=== PATIENT | female | born 1985 | race Hispanic/Latino ===

== ENCOUNTER → 2016-04-08 | Outpatient (CLI) | payer OTHER ==
[~2016-04-08] MED LIST: ACET50TA PO; IBUP-1114 PO; PRENTAB9 PO
== END | disposition home or self-care (01) ==
LOC: M LAB 07:56
PROVIDERS: ATTEND Obstetrics & Gynecology
DX: Z86.32 Personal history of gestational diabetes (principal)

== ENCOUNTER → 2018-04-28 | Outpatient (REF) | payer OTHER ==
[~2018-04-28] MED LIST changes: -ACET50TA PO; +MAPA500T2 PO
[2018-04-28 19:43] LABS: HCG, SERUM QUALITATIVE POSITIVE (NEGATIVE)
== END ==
LOC: M LABDRWAD 19:16
PROVIDERS: ATTEND Physician Assistant
DX: R11.0 Nausea (principal)

== ENCOUNTER → 2018-06-23 | Outpatient (CLI) | payer MEDICAID ==
[2018-06-23 13:43] LABS: BASO % 0.1 % (0.0-1.0); EOS % 0.4 % (0.0-3.0); HEMATOCRIT 38.7 % (36.0-47.0); HEMOGLOBIN 13.6 g/dl (12.0-15.5); LYMPH # 1.6 10^3/uL (1.5-4.5); LYMPH % 22.5 % (24.0-44.0); MEAN CORPUSCULAR HEMOGLOBIN 32.2 pg (27.0-33.0); MEAN CORPUSCULAR HGB CONC 35.1 g/dl (32.0-36.5); MEAN CORPUSCULAR VOLUME 91.5 fl (80.0-96.0); MONO # 0.2 10^3/uL (0.0-0.8); MONO % 2.6 % (0.0-5.0); NEUTROPHILS # 5.4 10^3/uL (1.8-7.7); NEUTROPHILS % 74.1 % (36.0-66.0); PLATELET COUNT, AUTOMATED 280 10^3/uL (150-450); RED BLOOD COUNT 4.23 10^6/uL (4.00-5.40); WHITE BLOOD COUNT 7.3 10^3/uL (4.0-10.0)
[2018-06-23 15:57] LABS: CHLAMYDIA DNA AMPLIFICATION NEGATIVE (NEGATIVE); GC DNA AMPLIFICATION NEGATIVE (NEGATIVE)
[2018-06-24 08:27] LABS: HEPATITIS C VIRUS ABY INDEX 0.1 INDEX (<0.8); HIV 1&2 SCREEN CENTAUR NEGATIVE (NEGATIVE); RUBELLA IgG QUALITATIVE IMMUNE (IMMUNE)
== END ==
LOC: M SMT 08:22
PROVIDERS: ATTEND Obstetrics & Gynecology
DX: Z34.81 Encounter for supervision of other normal pregnancy, first trimester (principal); Z3A.00 Weeks of gestation of pregnancy not specified

== ENCOUNTER → 2018-06-28 | Outpatient (CLI) | payer MEDICAID | LOC: M LAB 07:18 | PROVIDERS: ATTEND Obstetrics & Gynecology | DX: Z34.81 Encounter for supervision of other normal pregnancy, first trimester (principal) ==

== ENCOUNTER → 2018-07-25 | Outpatient (CLI) | payer OTHER ==
--- NOTE | 2018-07-26 03:50 | REP ---
Clinical: Anatomical evaluation. Comparison: None . Findings: Examination demonstrates a single live intrauterine in breech presentation. motion is identified by technologist. Placenta is noted anterior and grade grade 1 without evidence for placenta previa or abruption. Amniotic fluid volume is normal. Cervix measures 3.9 cm in length and appears closed. No evidence for nuchal cord. Anterior subserosal fibroids measure 1.3 cm and 2.3 cm maximal diameter. Gestational age by LMP 19 weeks 1 day with BRENNAN 12/18/1989 . Gestational age by current measurements 18 weeks 6 days with BRENNAN 12/20/2018 . FHR equals 138 beats per minute. BPD 4.3 cm 19 weeks 0 days HC 16.0 cm 18 weeks 6 days AC 14.1 cm 19 weeks 3-day FL 2.8 cm 18 weeks 4 days HL 2.7 cm 18 weeks 4 days HC/AC ratio 1.14 Estimated weight 271 grams ( 45th percentile). Anatomical assessment demonstrates normal structures including cranium, choroid plexus, cavum, cerebellum/posterior fossa, diaphragm, stomach, cord insertion/three-vessel cord, bladder, and extremities. Limited evaluation of the facial features, heart/ventricular outflow tracts, kidneys and spine. Impression: 1. Single live intrauterine in breech presentation demonstrating appropriate interval growth. 2. Maternal fibroids as measured above. 3. Anatomical limitations may warrant reevaluation and follow-up. Electronically Signed by Scott Woo MD 07/26/2018 03:41 A
== END ==
LOC: M RAD 09:18
PROVIDERS: ATTEND Advanced Practice Midwife
DX: Z34.82 Encounter for supervision of other normal pregnancy, second trimester (principal); Z3A.18 18 weeks gestation of pregnancy

== ENCOUNTER → 2018-08-15 | Outpatient (CLI) | payer OTHER ==
--- NOTE | 2018-08-16 05:24 | REP ---
Clinical: Anatomical evaluation. Comparison: 07/15/2018 . Findings: Examination demonstrates a single live intrauterine in cephalic presentation. motion is identified by technologist. Placenta is noted anterior and grade one without evidence for placenta previa or abruption. Amniotic fluid volume is normal. Cervix measures 3.9 cm in length and appears closed. No evidence for nuchal cord. Gestational age by LMP 22 weeks 1 day with BRENNAN 12/18/1989 . Gestational age by current measurements 22 weeks 4 day with BRENNAN 12/15/2018 FHR equals 147 beats per minute. Estimated weight 519 grams ( 62 percentile). Anatomical assessment demonstrates normal structures including cranium, choroid plexus, cavum, cerebellum/posterior fossa, facial features, lungs, four-chamber heart/right ventricular outflow tract, diaphragm, stomach, cord insertion/three-vessel cord, kidneys/bladder, spine, and extremities. Echogenic focus within the left cardiac ventricle likely chordae tendineae. Limited evaluation of the left cardiac ventricular outflow tract. Bilateral renal pelviectasis within normal range. Impression: 1. Single live intrauterine in cephalic presentation demonstrating appropriate interval growth. 2. Anatomical limitations as described above. Electronically Signed by Scott Woo MD 08/16/2018 05:15 A
== END ==
LOC: M RAD 12:58
PROVIDERS: ATTEND Advanced Practice Midwife
DX: O99.89 Other specified diseases and conditions complicating pregnancy, childbirth and the puerperium (principal); Z3A.22 22 weeks gestation of pregnancy; Z36.2 Encounter for other antenatal screening follow-up

== ENCOUNTER → 2018-08-30 | Outpatient (CLI) | payer OTHER ==
[2018-08-30 13:19] LABS: HEMOGLOBIN 13.1 g/dl (12.0-15.5); MEAN CORPUSCULAR HGB CONC 34.5 g/dl (32.0-36.5); MEAN CORPUSCULAR VOLUME 92.9 fl (80.0-96.0); PLATELET COUNT, AUTOMATED 247 10^3/uL (150-450); RED BLOOD COUNT 4.09 10^6/uL (4.00-5.40); WHITE BLOOD COUNT 7.4 10^3/uL (4.0-10.0)
== END ==
LOC: M SMT 11:13
PROVIDERS: ATTEND Advanced Practice Midwife
DX: O24.410 Gestational diabetes mellitus in pregnancy, diet controlled (principal); Z3A.00 Weeks of gestation of pregnancy not specified

== ENCOUNTER → 2018-09-08 | Outpatient (CLI) | payer OTHER ==
--- NOTE | 2018-09-08 16:20 | REP ---
Clinical: Anatomical evaluation. Comparison: 08/15/2018 . Findings: Examination demonstrates a single live intrauterine in cephalic presentation. motion is identified by technologist. Placenta is noted anterior and grade one without evidence for placenta previa or abruption. Large placental venous briceno. Amniotic fluid volume is normal. Cervix measures 4.7 cm in length and appears closed. No evidence for nuchal cord. Uterus again demonstrates two fibroids measuring 1.4 x 1.4 x 0.6 cm and 2.0 x 1.2 x 1.8 cm. Gestational age by LMP 25 weeks 4 day with BRENNAN 12/18/2018 . Gestational age by current measurements 25 weeks 3 day with BRENNAN 12/19/2018 . FHR equals 143 beats per minute. Estimated weight 843 grams ( 46th percentile). Anatomical assessment demonstrates normal structures including cranium, choroid plexus, cavum, cerebellum/posterior fossa, facial features, lungs, four-chamber heart/ventricular outflow tracts, diaphragm, stomach, cord insertion/three-vessel cord, and kidneys/bladder. Echogenic focus within the left cardiac ventricle likely represents prominent chordae tendineae. In conjunction with prior examination anatomical assessment is otherwise complete and normal. Impression: 1. Single live intrauterine in cephalic presentation demonstrating appropriate interval growth. 2. Echogenic focus within the left cardiac ventricle likely represents prominent chordae tendineae. In conjunction with prior examination anatomical assessment is otherwise complete and normal. 3. Large venous briceno and to fibroids again identified. Electronically Signed by Scott Woo MD 09/08/2018 04:11 P
== END ==
LOC: M RAD 15:00
PROVIDERS: ATTEND Advanced Practice Midwife
DX: O24.410 Gestational diabetes mellitus in pregnancy, diet controlled (principal); Z3A.25 25 weeks gestation of pregnancy

== ENCOUNTER → 2018-11-23 | Outpatient (CLI) | payer OTHER ==
[2018-11-23 13:41] LABS: ALBUMIN 2.8 GM/DL (3.2-5.2); ALT/SGPT 16 U/L (12-78); BILIRUBIN,DIRECT < 0.1 MG/DL (0.0-0.2); BILIRUBIN,TOTAL 0.2 MG/DL (0.2-1.0); TOTAL PROTEIN 6.2 GM/DL (6.4-8.2)
[2018-11-23 14:14] LABS: HIV 1&2 SCREEN CENTAUR NEGATIVE (NEGATIVE)
== END ==
LOC: M SMT 10:07
PROVIDERS: ATTEND Advanced Practice Midwife
DX: Z34.03 Encounter for supervision of normal first pregnancy, third trimester (principal); Z36.85 Encounter for antenatal screening for Streptococcus B; L20.9 Atopic dermatitis, unspecified

== ENCOUNTER 2018-12-10 00:14 | Inpatient (IN) | payer OTHER ==
[2018-12-10] VITALS (10 sets, daily range): BP systolic 118–139; BP diastolic 52–81
[~2018-12-10] VITALS: Ht 132.1 cm; Wt 68.5 kg
[2018-12-10] MEDS ORDERED: LR 1,000 ML IV SCH (00:50)
[2018-12-10] MEDS ORDERED: LACTATED RINGER'S 1000 ML IV STA (00:50)
[2018-12-10] MEDS ORDERED: PENICILLIN G POTASSIUM IV 5 MU in D5W MINI-BAG PLUS 100 ML IV STA (00:50)
[2018-12-10] MEDS ORDERED: PENICILLIN G POTASSIUM 5 MU VIAL As Ordered ONE (00:52)
--- NOTE | 2018-12-10 01:02 | HPEPDOC ---
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 Sex of Infant: Male (6#8) Complications: Yes (GDM) ACOUSTICAL CARPENTER History: No pertinent history Past Medical History Surgical History: Denies/None Family History Significant Family History: Diabetes, Hypertension Social History Marital Status: Single Family situation: Spouse/partner home Psychosocial History: No pertinent psych hx * Smoker: non-smoker Alcohol: Denies Drugs: denies Abuse Violence Screening Have you been hit/kicked/slapp: No Imunizations Tdap status: current Influenza Status: current Allergies Coded Allergies: latex (Verified Allergy, Unknown, RASH, 12/10/18) Medications Scheduled No.137/Iron/Folic Acd ( Vitamin Tablet) 1 Tab Tab, 1 TAB PO DAILY Physical Examination Physical Examination GENERAL: Alert and oriented times three. BREAST: . ABDOMEN: Gravid and non-tender to touch. FETUS: Is vertex (VTX) by sterile vaginal examination (SVE), fetus is vertex (VTX) by Garret. HEART RATE: Regular rate and rhythm. LUNGS: Clear to auscultation (CTA). EXTREMITIES: No edema. No clonus. Deep tendon reflexes (DTRs) + 2. Laboratory Data 24H LABS Laboratory Tests 2 12/10/18 00:22: Serology Scanned Report Hepatitis B Testing Pertinent Laboratoy Data Blood Type: O+ RBC Antibody Screen: Negative HIV: Negative Hepatitis B: Negative Hepatitis C: Negative Rapid Plasma Reagin: Nonreactive Rubella: Immune Chlamydia/Gonorrhea: Negative Group B Streptococcus: Positive Quad Screen Test: Declined Glucose Tolerance Test: 185 Anatomy Ultrasound Ultrasound Date: July 25, 2018 Placenta Location: Anterior Normal Anatomy: Yes Placenta Previa: No Estimated Weight (grams): 271 Steroid Therapy Steroid Therapy: No Vaginal Examination Dilation: 8 cm Effacement: 100% Station: 0 Cervical Consistency: Soft Cervical Position: Anterior Presentation: Cephalic presentation Assessment Heart Rate (FHR): 130 Variability: Moderate Accelerations: Positive Decelerations: Early Tocometer Contractions: Yes Frequency: regular, every 2-5 min. Strength: palpated as strong Assessment/Plan Assessment Mai is a 33-year-old (G)2 para (P)1-0-0-1 at 38+6 weeks by 12-week ultrasound. Presents to Labor and Delivery (L&D) with reports of UC through the night and LOF @ 2330, clear. Denies bleeding. Fetus is active. Plan Admit and orient. Information Delivery Analyst and consent. Diet: clear. Group B Streptococcus (GBS) positive. Labs and intravenous (IV) per unit protocol. Counseled on Pitocin and induction of labor (IOL). Lactated Ringers (LR): Bolus 500 mL, then at 125 mL/hr. Anticipate normal spontaneous delivery (). C-S as appropriate. Delores Sullivan CNM Dec 10, 2018 01:02
[2018-12-10 01:05] LABS: HEMOGLOBIN 11.3 g/dl (12.0-15.5); MEAN CORPUSCULAR HGB CONC 33.2 g/dl (32.0-36.5); MEAN CORPUSCULAR VOLUME 87.4 fl (80.0-96.0); PLATELET COUNT, AUTOMATED 215 10^3/uL (150-450); RED BLOOD COUNT 3.89 10^6/uL (4.00-5.40)
[2018-12-10] MEDS ORDERED: OXYTOCIN 30 UNITS IN 0.9% NaCl 500ML IV BAG (J2590) As Ordered ONE (01:07)
[2018-12-10 02:08] LABS: CORD GAS ABE V -7.2; CORD GAS HCO3 V 17.9 MEQ/L; CORD GAS O2 SAT V 94.5 %; CORD GAS PCO2 V 35.6 mmHg; CORD GAS PH V 7.32 UNITS; CORD GAS PO2 V 55.5 mmHg; CORD GAS SBC V 18.7 MEQ/L
[2018-12-10] MEDS ORDERED: OXYTOCIN DRIP 30 UNITS in IV 1 EA IV SCH (02:16)
--- NOTE | 2018-12-10 02:25 | DNPDOC ---
[facility] Delivery Note Delivery Note DATE OF DELIVERY: December 10, 2018 PREDELIVERY DIAGNOSIS: 38+6/7 weeks' gestation and labor. POST DELIVERY DIAGNOSIS: Delivered. PROCEDURE: Spontaneous vaginal delivery. PROVIDER: Delores Sullivan CNM ANESTHESIA: None. ESTIMATED BLOOD LOSS: 400 mL. FINDINGS: 6 pound 6 ounce, 2890gm male , Score 8/9, nuchal cord times 1, compound presentation right posterior arm. DELIVERY SUMMARY: Patient is a 33-year-old 2 now para 2-0-0-2 who was admitted to labor and delivery for active labor and spontaneous rupture of membranes. She coped with her labor physiologically. FD 0112. Viable male delivered JAK through nuchal cord with compound right posterior arm. Spontaneous respirations, transitioned on maternal abdomen. Cord doubly clamped and cut by patient after pulsations ceased. Venous cord gas 7.320 with BE -7.2. Apgars 8/9. Placenta morgan, intact with 3v cord @ 0147. Fundus remained boggy with brisk bleeding despite IV pitocin bolus and massage. Misoprostol 1000mcg MI given with excellent control of bleeding. EBL 400ml. Cervix, vagina and perineum intact. Sponge, sharp and instrument count correct. . Delores Sullivan CNM Dec 10, 2018 02:25
[2018-12-10] MEDS: METHYLERGONOVINE MALEATE 0.2 MG TAB PO SCH ×4 (02:29→21:02)
[2018-12-10] MEDS ORDERED: ACETAMINOPHEN 500 MG TAB PO PRN (02:30)
[2018-12-10] MEDS ORDERED: DOCUSATE SODIUM 100 MG CAP PO PRN (02:30)
[2018-12-10] MEDS ORDERED: IBUPROFEN 800 MG TAB PO PRN (02:30)
[2018-12-10] MEDS ORDERED: ANUSOL HC CREAM 30GM TOP PRN (02:30)
[2018-12-10] MEDS ORDERED: IBUPROFEN 600 MG TAB PO PRN (02:30)
[2018-12-10] MEDS ORDERED: MOM 30ML SUSPENSION UDC PO PRN (02:30)
[2018-12-10] MEDS ORDERED: RHOGAM 300 MCG (1500 IU) INJ (J2790) IM SCH (02:30)
[2018-12-10] MEDS ORDERED: miSOPROStol 200 MCG TAB (S0191) PR ONE (02:30)
[2018-12-10] MEDS ORDERED: ACETAMINOPHEN TAB 650MG DOSE (2X325MG) PO PRN (02:30)
[2018-12-10] MEDS ORDERED: DIBUCAINE 1% OINTMENT 30GM TOP PRN (02:30)
[2018-12-10] MEDS ORDERED: MEASLES,MUMPS,RUBELLA VACCINE INJ (MMR-II) (90707) SC SCH (02:30)
[2018-12-10] MEDS ORDERED: PENICILLIN G POTASSIUM IV 2.5 MU in IV 1 EA IV SCH (05:00)
[2018-12-10] MEDS: PRENATAL VITAMINS CHEWABLE TABLET PO SCH (08:59)
[2018-12-11] MEDS: METHYLERGONOVINE MALEATE 0.2 MG TAB PO SCH (02:05)
[2018-12-11 06:00] VITALS: BP 99/62
[2018-12-11] MEDS: PRENATAL VITAMINS CHEWABLE TABLET PO SCH (08:29)
[2018-12-11 17:46] VITALS: BP 103/52
[2018-12-12 06:00] VITALS: BP 109/54
[2018-12-12] MEDS: PRENATAL VITAMINS CHEWABLE TABLET PO SCH (08:45)
[2018-12-12] MEDS ORDERED: IBUP80TA PO (09:33)
== END 2018-12-12 13:00 | disposition home or self-care (01) | DRG 560 ==
LOC: M LDI 00:14 → M OBS 04:33
PROVIDERS: ADMIT Advanced Practice Midwife; ATTEND Advanced Practice Midwife
PROC: 10E0XZZ Delivery of Products of Conception, External Approach (ICD-10-PCS; principal; 2018-12-10)
DX: O24.420 Gestational diabetes mellitus in childbirth, diet controlled (principal); O99.824 Streptococcus B carrier state complicating childbirth; Z3A.38 38 weeks gestation of pregnancy; O69.81X0 Labor and delivery complicated by cord around neck, without compression, not applicable or unspecified; O32.6XX0 Maternal care for compound presentation, not applicable or unspecified; Z37.0 Single live birth

== ENCOUNTER → 2019-01-31 | Outpatient (CLI) | payer OTHER ==
[~2019-01-31] MED LIST changes: +IBUP80TA PO
== END ==
LOC: M LAB 08:21
PROVIDERS: ATTEND Advanced Practice Midwife
DX: O24.410 Gestational diabetes mellitus in pregnancy, diet controlled (principal)

== ENCOUNTER → 2019-03-21 | Outpatient (REF) | payer OTHER, SELFPAY | LOC: M SFHCWAGY 17:53 | PROVIDERS: ATTEND Advanced Practice Midwife | DX: Z12.4 Encounter for screening for malignant neoplasm of cervix (principal) ==

== ENCOUNTER → 2020-04-12 | Outpatient (REF) | payer OTHER | LOC: M PLALAB 14:39 | PROVIDERS: ATTEND Obstetrics & Gynecology | DX: Z86.32 Personal history of gestational diabetes (principal) ==

== ENCOUNTER → 2020-05-24 | Outpatient (REF) | payer OTHER ==
[2020-05-24 15:55] LABS: HEMATOCRIT 37.3 % (36.0-47.0); HEMOGLOBIN 12.7 g/dl (12.0-15.5); MEAN CORPUSCULAR HEMOGLOBIN 32.5 pg (27.0-33.0); MEAN CORPUSCULAR VOLUME 95.4 fl (80.0-96.0); PLATELET COUNT, AUTOMATED 229 10^3/uL (150-450); RED BLOOD COUNT 3.91 10^6/uL (4.00-5.40); WHITE BLOOD COUNT 7.3 10^3/uL (4.0-10.0)
[2020-05-24 16:04] LABS: HEMOGLOBIN A1c 4.8 %
[2020-05-24 16:10] LABS: GLUCOSE CHALLENGE TEST 1 HOUR 192 MG/DL (LESS THAN 140)
[2020-05-24 17:14] LABS: HEPATITIS C VIRUS ABY INDEX < 0.0 INDEX (<0.8)
[2020-05-24 17:15] LABS: HIV 1&2 SCREEN CENTAUR NEGATIVE (NEGATIVE)
== END ==
LOC: M PLALAB 11:50
PROVIDERS: ATTEND Obstetrics & Gynecology
DX: Z86.32 Personal history of gestational diabetes (principal)

== ENCOUNTER → 2020-05-25 | Outpatient (REF) | payer OTHER | LOC: M PLALAB 11:17 | PROVIDERS: ATTEND Obstetrics & Gynecology | DX: O99.810 Abnormal glucose complicating pregnancy (principal); Z3A.00 Weeks of gestation of pregnancy not specified; Z53.9 Procedure and treatment not carried out, unspecified reason ==

== ENCOUNTER → 2020-06-12 | Outpatient (CLI) | payer OTHER ==
--- NOTE | 2020-06-13 06:26 | REP ---
INDICATION: ANATOMY COMPARISON: None. TECHNIQUE: Transabdominal obstetrical ultrasound with color Doppler evaluation. FINDINGS: Examination demonstrates a single live intrauterine in cephalic presentation. motion is identified by technologist. Placenta is noted posterior and grade 0 without evidence for placenta previa or abruption. Amniotic fluid volume is normal. Cervix measures 3.4 cm in length and appears closed. A 1.1 cm anterior intramural fibroid is suggested in the uterus.. Gestational age by LMP 22 weeks 5 days with BRENNAN 10/11/2020. Gestational age by current measurements 22 weeks 4 days with BRENNAN 10/12/2020 *Selected gestational age: 23 weeks 3 days. FHR equals 146 beats per minute. BPD: 5.5 cm at 22 weeks 6 days HC: 19.8 cm at 22 weeks 0 days AC: 18.4 cm at 23 weeks 1 day FL: 3.8 cm at 22 weeks 1 day HL: 3.6 cm at 22 weeks 5 days HC/AC: 1.08 Estimated weight 523 grams (14thpercentile based on selected gestational age). Anatomical assessment demonstrates normal structures including cranium, choroid plexus, cavum, cerebellum/posterior fossa, facial features, lungs, four-chamber heart/ventricular outflow tracts, diaphragm, stomach, cord insertion/three-vessel cord, kidneys/bladder, spine, and extremities. IMPRESSION: 1. Single live intrauterine in cephalic presentation demonstrating relatively normal estimated weight/growth. 2. Anatomical assessment is complete and normal. 3. Small anterior intramural fibroid. <Electronically signed by Scott Woo > 06/13/20 0622
== END ==
LOC: M WHC 10:30
PROVIDERS: ATTEND Advanced Practice Midwife
DX: Z34.92 Encounter for supervision of normal pregnancy, unspecified, second trimester (principal); Z3A.22 22 weeks gestation of pregnancy

== ENCOUNTER → 2020-07-10 | Outpatient (REF) | payer OTHER ==
[2020-07-10 13:37] LABS: HEMATOCRIT 36.2 % (36.0-47.0); HEMOGLOBIN 12.3 g/dl (12.0-15.5); MEAN CORPUSCULAR VOLUME 94.3 fl (80.0-96.0); PLATELET COUNT, AUTOMATED 225 10^3/uL (150-450); RED BLOOD COUNT 3.84 10^6/uL (4.00-5.40); WHITE BLOOD COUNT 6.7 10^3/uL (4.0-10.0)
== END ==
LOC: M PLALAB 09:38
PROVIDERS: ATTEND Advanced Practice Midwife
DX: Z36.89 Encounter for other specified antenatal screening (principal); Z3A.23 23 weeks gestation of pregnancy

== ENCOUNTER → 2020-08-15 | Outpatient (CLI) | payer OTHER ==
--- NOTE | 2020-08-15 10:11 | REP ---
INDICATION: UTERINE SIZE DATE DISCREPANCY,GROWTH COMPARISON: 06/12/2020 TECHNIQUE: Transabdominal obstetrical ultrasound with color Doppler evaluation. FINDINGS: Examination demonstrates a single live intrauterine in transverse (head to maternal left) presentation. motion is identified by technologist. Placenta is noted fundal and grade 1 without evidence for placenta previa or abruption. Few small placental venous lakes are suggested. Amniotic fluid volume is normal. Cervix measures 3.7 cm in length and appears closed. KARAN: 20.8 cm. Selected gestational age by 1st U/S 32 weeks 4 days with BRENNAN 10/06/2020. Gestational age by current measurements 33 weeks 0 days with BRENNAN 10/03/2020. FHR equals 140 beats per minute. BPD: 8.2 cm at 33 weeks 0 days HC: 29.8 cm at 33 weeks 0 days AC: 29.2 cm at 33 weeks 2 days FL: 6.2 cm at 32 weeks 0 days HL: 5.8 cm at 33 weeks 3 days HC/AC: 1.02 Estimated weight 2059 grams (48thpercentile). Umbilical artery 1 SD ratio: 2.85 (1.81-3.81) Umbilical artery 2 SD ratio: 2.64 (1.81-3.81) IMPRESSION: Single live intrauterine in transverse lie demonstrating appropriate estimated weight and growth. <Electronically signed by Scott Woo > 08/15/20 1007
== END ==
LOC: M WHC 09:24
PROVIDERS: ATTEND Advanced Practice Midwife
DX: O26.849 Uterine size-date discrepancy, unspecified trimester (principal)

== ENCOUNTER → 2020-09-04 | Outpatient (REF) | payer OTHER | LOC: M SFHCWAGY 13:03 | PROVIDERS: ATTEND Advanced Practice Midwife | DX: O24.319 Unspecified pre-existing diabetes mellitus in pregnancy, unspecified trimester (principal) ==

== ENCOUNTER → 2020-09-11 | Outpatient (CLI) | payer OTHER ==
--- NOTE | 2020-09-11 08:56 | REP ---
INDICATION: PREGESTATIONAL DIABETES,GROWTH. COMPARISON: None. TECHNIQUE: Transabdominal scanning FINDINGS: Multiple ultrasonographic images of the gravid uterus shows a single living intrauterine gestation in the cephalic presentation. Doppler interrogation of the heart shows a heart rate of 143 beats per minute. The placenta is posterior and not low-lying. Secondary to the low position of the head an accurate cervical length measurement could not be obtained. The subjective amniotic fluid volume is within normal limits. The calculated amniotic fluid index is 15.31 expected range 7.6-24.7. Doppler interrogation of the umbilical artery shows an AB ratio of 2.02. This is within the normal range. BPD: 8.7 cm 35 weeks 1 day HC: 30.6 cm 34 weeks 0 days AC: 30.7 cm 34 weeks 4 days FL: 6.7 cm 34 weeks 5 days The estimated weight is 2473 g which is at the 31st percentile for 35 week 5 day gestational age. IMPRESSION: Single living intrauterine gestation as described above with an estimated gestational age of 34 weeks 5 days via composite criteria and an estimated date of delivery of 10/18/2020 by today's exam. <Electronically signed by Anthony Polo > 09/11/20 0898
== END ==
LOC: M WHC 06:44
PROVIDERS: ATTEND Advanced Practice Midwife
DX: O24.319 Unspecified pre-existing diabetes mellitus in pregnancy, unspecified trimester (principal)

== ENCOUNTER 2020-09-24 06:10 | Inpatient (IN) | payer OTHER ==
[2020-09-24] VITALS (36 sets, daily range): BP systolic 103–149; BP diastolic 55–86
[~2020-09-24] VITALS: Ht 152.4 cm; Wt 72.0 kg
[2020-09-24] MEDS ORDERED: LACTATED RINGER'S 1000 ML IV STA (07:55)
[2020-09-24] MEDS ORDERED: LIDOCAINE 1% MDV 20ML VIAL INFIL PRN (07:55)
[2020-09-24] MEDS ORDERED: TRANEXAMIC ACID INJection 1,000 MG in NS 100 ML IV PRN (07:55)
[2020-09-24] MEDS ORDERED: METHYLERGONOVINE MALEATE 0.2 MG/ML VIAL (J2210) IM PRN (07:55)
[2020-09-24] MEDS ORDERED: CARBOPROST TROMETHAMINE 250 MCG/ML AMP IM PRN (07:55)
[2020-09-24] MEDS ORDERED: OXYTOCIN DRIP 30 UNITS in IV 1 EA IV PRN (07:55)
[2020-09-24 08:38] LABS: HEMATOCRIT 38.1 % (36.0-47.0); HEMOGLOBIN 12.7 g/dl (12.0-15.5); MEAN CORPUSCULAR HEMOGLOBIN 30.1 pg (27.0-33.0); MEAN CORPUSCULAR HGB CONC 33.3 g/dl (32.0-36.5); MEAN CORPUSCULAR VOLUME 90.3 fl (80.0-96.0); PLATELET COUNT, AUTOMATED 221 10^3/uL (150-450); RED BLOOD COUNT 4.22 10^6/uL (4.00-5.40); WHITE BLOOD COUNT 5.9 10^3/uL (4.0-10.0)
[2020-09-24] MEDS ORDERED: miSOPROStol 50MCG 1/2 TABLET SL SCH (09:00)
--- NOTE | 2020-09-24 09:05 | HPEPDOC ---
Obstetrical History & Physical General Date of Admission Sep 24, 2020 at 07:54 Primary Care Physician: KAIT BRENNAN MD History of Present Illness Mai is a Spanigh-speaking 35F at 38.2 gestation w/ BRENNAN 10/12/20 based off of 1st trimester u/s who presents in PROM. She initiated care in her 2nd trimester of (17wks) w/ WWBC. Her has been complicated by hx [id number] and uterine fibroid. Reports active movement, occasional contractions, leaking of fluid. Denies vaginal bleeding. Chief Complaint: Contractions, term, Rupture of membranes Information Provided By: Patient Age: 35 : 3 Term: 2 Pre-term: 0 Abortions: 0 Livin Care Care: Good Care (end of 2nd trimester, 3rd trimester) Number of Visits: 12 Dating Final EDC: Oct 06, 2020 Final EDC by: 1st trimester (US) Antepartum Course Diagnos(e)s N/A Height (inches): 60 Pre- weight (lbs.): 140 Admission Weight (lbs.): 159.2 Change in Weight (lbs.): 19.2 Past Medical History Past Obstetrical History #1: Past Obstetrical History: Primgravida Date of Delivery: Jan 27, 2016 Gestation: 39 Type of Delivery: Spontaneous Vaginal Del. Sex of : Male Weight of (grams): 3118 Complications: Yes (GDM) Past Obstetrical History #2: Past Obstetrical History: Multigravida Date of Delivery: Dec 10, 2018 Gestation: 39 Type of Delivery: Spontaneous Vaginal Del. Sex of : Male Weight of Infant (grams): 2891 Complications: Yes (GDM) INSPECTOR PRECISION ASSEMBLY History: Uterine fibroids Past Medical History Surgical History: Denies/None Family History Significant Family History: No pertinent family hx Social History Marital Status: Single (w/ partner) Family situation: Spouse/partner home Psychosocial History: No pertinent psych hx * Smoker: non-smoker Alcohol: Denies Drugs: denies Allergies Coded Allergies: latex (Verified Allergy, Unknown, RASH, 09/24/20) Medications Scheduled No.137/Iron/Folic Acd ( Vitamin Tablet) 1 Tab Tab, 1 TAB PO DAILY Physical Examination Physical Examination GENERAL: Alert and oriented times three. BREAST: . ABDOMEN: Gravid and non-tender to touch. FETUS: Is vertex (VTX) by sterile vaginal examination (SVE), fetus is vertex (VTX) by Garret. RESPIRATORY: Regular rate w/out use of accessory muscles EXTREMITIES: No edema. No clonus. Vital Signs/I&O Vital Signs Date Time Temp Pulse Resp B/P (MAP) Pulse Ox O2 Delivery O2 Flow Rate FiO2 09/24/20 07:40 98.1 82 16 111/71 (84) Room Air Laboratory Data 24H LABS Laboratory Tests 2 09/24/20 08:05: Serology Scanned Report Hepatitis B Testing Pertinent Laboratoy Data Blood Type: O+ RBC Antibody Screen: Negative HIV: Negative Hepatitis B: Negative Hepatitis C: Negative Rapid Plasma Reagin: Nonreactive Rubella: Immune Varicella: Immune Chlamydia/Gonorrhea: Negative Group B Streptococcus: Negative Anatomy Ultrasound Ultrasound Date: Jun 12, 2020 Placenta Location: Posterior Normal Anatomy: Yes Placenta Previa: No Estimated Weight (grams): 2473 Other Ultrasounds 09/11/20 growth sono Steroid Therapy Steroid Therapy: No Vaginal Examination Dilation: 2cm Effacement: 80% Station: -2 Presentation: Cephalic presentation Position: Vertex (occiput) Assessment Heart Rate (FHR): 137 Variability: Increased Accelerations: Present Decelerations: None Tocometer Contractions: Yes Frequency: greater than 9 min/apart Duration: less than 60 seconds Assessment/Plan Assessment Mai is a 35-year-old (G)3 para (P)0-0-0-2 at 38+2 weeks by 1st trimester ultrasound. Presents to Labor and Delivery (L&D) with PROM. Plan Admit and orient. Social Research Assistant and consent. Diet: regular Group B Streptococcus (GBS) negative. Labs and intravenous (IV) per unit protocol. Counseled on Pitocin and induction of labor (IOL) Lactated Ringers (LR): Bolus 800 mL Anticipate normal spontaneous delivery (). C-S as appropriate. Dawn Borjas DO Sep 24, 2020 09:05
[2020-09-24] MEDS ORDERED: OXYTOCIN DRIP 30 UNITS in IV 1 EA IV SCH (13:40)
[2020-09-24] MEDS: LR 1,000 ML IV SCH ×2 (15:15→17:21)
[2020-09-24] MEDS ORDERED: FENTANYL 2MCG/ML ROPIVACAINE 0.2% IN 0.9% NACL 100ML IVBAG As Ordered ONE (16:20)
[2020-09-24] MEDS ORDERED: EPIDURAL COMMENT XX SCH (16:50)
[2020-09-24] MEDS ORDERED: LACTATED RINGER'S 1000 ML IV PRN (16:50)
[2020-09-24] MEDS ORDERED: diphenhydrAMINE 50MG/ML VIAL (J1200) IV PRN (16:50)
[2020-09-24] MEDS ORDERED: FENTANYL/ROPIVACAINE/NACL BAG 100 ML EPIDURAL SCH (16:50)
[2020-09-24] MEDS ORDERED: ONDANSETRON 4MG/2ML VIAL IV PRN ×2 (16:50→19:30)
[2020-09-24] MEDS ORDERED: EPIDURAL/PCA KEYS XX PRN (16:50)
[2020-09-24] MEDS ORDERED: NALOXONE INJ 0.4MG/1ML VIAL (J2310 PER 1MG) IV PRN (16:50)
[2020-09-24] MEDS ORDERED: ePHEDrine SULFATE 25 MG/5 ML(5MG/ML) SYRINGE IV PRN (16:50)
[2020-09-24] MEDS ORDERED: REFRIGERATOR IV KEYS XX PRN (16:50)
[2020-09-24] MEDS ORDERED: ACETAMINOPHEN TAB 650MG DOSE (2X325MG) PO PRN (19:30)
[2020-09-24] MEDS ORDERED: DOCUSATE SODIUM 100MG CAPSULE PO PRN (19:30)
[2020-09-24] MEDS ORDERED: OXYTOCIN DRIP 30 UNITS in IV 1 EA IV ONE (19:30)
[2020-09-24] MEDS ORDERED: RHOGAM 300 MCG (1500 IU) INJ (J2790) IM SCH (19:30)
[2020-09-24] MEDS ORDERED: MEASLES,MUMPS,RUBELLA VACCINE INJ (MMR-II) (90707) SC SCH (19:30)
[2020-09-24] MEDS ORDERED: ACETAMINOPHEN 500 MG TAB PO PRN (19:30)
[2020-09-24] MEDS ORDERED: IBUPROFEN 600MG TAB PO PRN (19:30)
[2020-09-24] MEDS ORDERED: METHYLERGONOVINE MALEATE 0.2 MG TAB PO PRN (19:30)
--- NOTE | 2020-09-24 22:39 | DNPDOC ---
[facility] Delivery Note Delivery Note DATE OF DELIVERY: September 24, 2020 PREDELIVERY DIAGNOSIS: 38-2/7 weeks' gestation and labor. POST DELIVERY DIAGNOSIS: Delivered. PROCEDURE: Spontaneous vaginal delivery. EDITOR MANAGING NEWSPAPER: Dr. Kait Brennan MD ANESTHESIA: Epidural. ESTIMATED BLOOD LOSS: 300 mL. FINDINGS: 5 pound 14 ounce female , Score 8/9. DELIVERY SUMMARY: Patient is a 35-year-old admitted for early labor with spontaneous rupture of membranes. She received 1 dose of misoprostol. She was hopefully started on IV Pitocin. She received epidural anesthesia. After he 10-minute second stage of labor she had spontaneous vaginal delivery of a 5 pound 14 ounce female infant. There was no nuchal cord. The shoulders delivered with ease. The was handed to the mother and the cord was doubly clamped and cut. The placenta delivered spontaneously and appeared to be intact. The patient received IV Pitocin immediately after delivery of the placenta. There were no vaginal lacerations present. Sponge counts were correct. KAIT BRENNAN MD Sep 24, 2020 22:36
[2020-09-25] MEDS: IBUPROFEN 800 MG TAB PO PRN ×2 (05:34→17:36)
[2020-09-25 06:18] VITALS: BP 110/56
[2020-09-25] MEDS: PRENATAL VITAMINS CHEWABLE TABLET PO SCH (08:41)
[2020-09-25 18:00] VITALS: BP 124/57
[2020-09-26 06:00] VITALS: BP 130/67
[2020-09-26] MEDS: PRENATAL VITAMINS CHEWABLE TABLET PO SCH (08:30)
== END 2020-09-26 12:45 | disposition home or self-care (01) | DRG 560 ==
LOC: M LDO 06:10 → M LDI 07:54 → M OBS 21:08
PROVIDERS: ADMIT Specialist; ATTEND Specialist
PROC: 10E0XZZ Delivery of Products of Conception, External Approach (ICD-10-PCS; principal; 2020-09-24)
DX: O42.02 Full-term premature rupture of membranes, onset of labor within 24 hours of rupture (principal); Z37.0 Single live birth; Z3A.38 38 weeks gestation of pregnancy; O24.420 Gestational diabetes mellitus in childbirth, diet controlled

== ENCOUNTER → 2021-09-24 | Outpatient (REF) | payer OTHER | LOC: M LAB REF 15:55 | PROVIDERS: ATTEND Student in an Organized Health Care Education/Training Program | DX: R30.0 Dysuria (principal) ==

== ENCOUNTER → 2021-12-31 | Outpatient (CLI) | payer OTHER ==
[2021-12-31 15:08] LABS: HEMATOCRIT 37.7 % (36.0-47.0); HEMOGLOBIN 13.1 g/dl (12.0-15.5); MEAN CORPUSCULAR HEMOGLOBIN 32.8 pg (27.0-33.0); MEAN CORPUSCULAR HGB CONC 34.7 g/dl (32.0-36.5); MEAN CORPUSCULAR VOLUME 94.3 fl (80.0-96.0); PLATELET COUNT, AUTOMATED 233 10^3/uL (150-450)
[2021-12-31 15:36] LABS: HEMOGLOBIN A1c 4.9 %
[2021-12-31 18:31] LABS: HEPATITIS C VIRUS ABY INDEX < 0.0 INDEX (<0.8); HIV 1&2 SCREEN CENTAUR NEGATIVE (NEGATIVE)
== END ==
LOC: M PLALAB 09:01
PROVIDERS: ATTEND Specialist
DX: Z34.81 Encounter for supervision of other normal pregnancy, first trimester (principal)

== ENCOUNTER → 2021-12-31 | Outpatient (CLI) | payer OTHER | LOC: M PLALAB 09:03 | PROVIDERS: ATTEND Obstetrics & Gynecology | DX: Z34.92 Encounter for supervision of normal pregnancy, unspecified, second trimester (principal) ==

== ENCOUNTER → 2022-01-23 | Outpatient (CLI) | payer OTHER | LOC: M WHC 11:30 | PROVIDERS: ATTEND Obstetrics & Gynecology | DX: O24.312 Unspecified pre-existing diabetes mellitus in pregnancy, second trimester (principal) ==

== ENCOUNTER → 2022-02-25 | Outpatient (CLI) | payer OTHER | LOC: M WHC 07:13 | PROVIDERS: ATTEND Specialist | DX: Z34.82 Encounter for supervision of other normal pregnancy, second trimester (principal) ==

== ENCOUNTER → 2022-03-18 | Outpatient (CLI) | payer OTHER ==
[2022-03-18 15:49] LABS: HEMATOCRIT 37.1 % (36.0-47.0); HEMOGLOBIN 12.6 g/dl (12.0-15.5); MEAN CORPUSCULAR HEMOGLOBIN 32.3 pg (27.0-33.0); MEAN CORPUSCULAR VOLUME 95.1 fl (80.0-96.0); PLATELET COUNT, AUTOMATED 239 10^3/uL (150-450); WHITE BLOOD COUNT 7.1 10^3/uL (4.0-10.0)
[2022-03-18 19:56] LABS: GC DNA AMPLIFICATION NEGATIVE (NEGATIVE)
== END ==
LOC: M PLALAB 11:10
PROVIDERS: ATTEND Specialist
DX: Z34.82 Encounter for supervision of other normal pregnancy, second trimester (principal)

== ENCOUNTER → 2022-03-19 | Outpatient (CLI) | payer OTHER | LOC: M WHC 12:09 | PROVIDERS: ATTEND Specialist | DX: Z34.82 Encounter for supervision of other normal pregnancy, second trimester (principal) ==

== ENCOUNTER → 2022-04-24 | Outpatient (CLI) | payer OTHER ==
[2022-04-24 15:30] LABS: ALBUMIN 2.9 G/DL (3.2-5.2); ALKALINE PHOSPHATASE 188 U/L (46-116); ALT/SGPT 30 U/L (7.0-40); AST/SGOT < 8 U/L (<34); BILIRUBIN,TOTAL 0.4 MG/DL (0.3-1.2); BLOOD UREA NITROGEN 9 MG/DL (9-23); CALCIUM LEVEL 8.5 MG/DL (8.5-10.1); CARBON DIOXIDE LEVEL 23 MMOL/L (20-31); CHLORIDE LEVEL 105 MMOL/L (98-107); CREATININE FOR GFR 0.46 MG/DL (0.55-1.30); GLOMERULAR FILTRATION RATE > 60.0 (>60); GLUCOSE, FASTING 72 MG/DL (60-100); POTASSIUM SERUM 4.2 MMOL/L (3.5-5.1); SODIUM LEVEL 137 MMOL/L (136-145); TOTAL PROTEIN 6.4 G/DL (5.7-8.2)
== END ==
LOC: M PLALAB 12:25
PROVIDERS: ATTEND Advanced Practice Midwife
DX: O24.319 Unspecified pre-existing diabetes mellitus in pregnancy, unspecified trimester (principal); L29.9 Pruritus, unspecified

== ENCOUNTER → 2022-05-20 | Outpatient (REF) | payer OTHER | LOC: M SFHCWAGY 16:54 | PROVIDERS: ATTEND Specialist | DX: O24.313 Unspecified pre-existing diabetes mellitus in pregnancy, third trimester (principal) ==

== ENCOUNTER 2022-05-26 08:52 | Inpatient (IN) | payer OTHER ==
[~2022-05-26] VITALS: Ht 149.9 cm; Wt 81.7 kg
[2022-05-26] VITALS (29 sets, daily range): BP systolic 94–137; BP diastolic 50–83
[2022-05-26] MEDS ORDERED: HOME MED LIST COMPLETE! XX SCH (09:30)
[2022-05-26] MEDS ORDERED: TRANEXAMIC ACID INJection 1,000 MG in NS 100 ML IV PRN (09:45)
[2022-05-26] MEDS ORDERED: METHYLERGONOVINE MALEATE 0.2MG/ML 1ML VIAL IM PRN (09:45)
[2022-05-26] MEDS ORDERED: CARBOPROST TROMETHAMINE 250 MCG/ML AMP IM PRN (09:45)
[2022-05-26 10:31] LABS: HEMATOCRIT 36.4 % (36.0-47.0); HEMOGLOBIN 12.5 g/dl (12.0-15.5); MEAN CORPUSCULAR HEMOGLOBIN 31.3 pg (27.0-33.0); MEAN CORPUSCULAR HGB CONC 34.3 g/dl (32.0-36.5); PLATELET COUNT, AUTOMATED 230 10^3/uL (150-450); WHITE BLOOD COUNT 6.4 10^3/uL (4.0-10.0)
[2022-05-26 11:02] LABS: ALBUMIN 2.8 G/DL (3.2-5.2); ALKALINE PHOSPHATASE 250 U/L (46-116); ALT/SGPT 21 U/L (7.0-40); AST/SGOT 29 U/L (<34); BILIRUBIN,TOTAL 0.6 MG/DL (0.3-1.2); BLOOD UREA NITROGEN 9 MG/DL (9-23); CALCIUM LEVEL 8.3 MG/DL (8.5-10.1); CARBON DIOXIDE LEVEL 20 MMOL/L (20-31); CHLORIDE LEVEL 105 MMOL/L (98-107); CREATININE FOR GFR 0.42 MG/DL (0.55-1.30); GLOMERULAR FILTRATION RATE > 60.0 (>60); GLUCOSE, FASTING 71 MG/DL (60-100); POTASSIUM SERUM 4.2 MMOL/L (3.5-5.1); SODIUM LEVEL 135 MMOL/L (136-145)
[2022-05-26] MEDS ORDERED: miSOPROStol 50MCG 1/2 TABLET PO ONE ×2 (11:45→16:30)
[2022-05-26 12:38] LABS: TOTAL PROTEIN 5.9 G/DL (5.7-8.2)
[2022-05-26] MEDS ORDERED: OXYTOCIN DRIP 30 UNITS in IV 1 EA IV SCH (21:10)
[2022-05-26] MEDS: LR 1,000 ML IV SCH ×2 (21:36→22:18)
[2022-05-26] MEDS ORDERED: LR 500 ML IV PRN ×2 (22:40)
[2022-05-26] MEDS ORDERED: FENTANYL/ROPIVACAINE/NACL BAG 100 ML EPIDURAL SCH (22:40)
[2022-05-26] MEDS ORDERED: EPIDURAL/PCA KEYS XX PRN ×2 (22:40)
[2022-05-26] MEDS ORDERED: ONDANSETRON 4MG 2ML VIAL IV PRN ×2 (22:40)
[2022-05-26] MEDS ORDERED: NALOXONE INJ 0.4MG/1ML VIAL IV PRN ×2 (22:40)
[2022-05-26] MEDS ORDERED: diphenhydrAMINE 50MG/ML VIAL IV PRN ×2 (22:40)
[2022-05-26] MEDS ORDERED: ePHEDrine SULFATE 25 MG/5 ML(5MG/ML) SYRINGE IVP PRN (22:40)
[2022-05-26] MEDS: ePHEDrine SULFATE 25 MG/5 ML(5MG/ML) SYRINGE IVP PRN ×2 (23:31→23:49)
[2022-05-27] VITALS (35 sets, daily range): BP systolic 11–145; BP diastolic 47–70
[2022-05-27] MEDS: ePHEDrine SULFATE 25 MG/5 ML(5MG/ML) SYRINGE IVP PRN (00:13)
[2022-05-27] MEDS: LR 1,000 ML IV SCH ×2 (00:44→05:08)
[2022-05-27] MEDS ORDERED: ePHEDrine SULFATE 25 MG/5 ML(5MG/ML) SYRINGE IVP PRN (06:00)
[2022-05-27] MEDS ORDERED: LACTATED RINGER'S 1000 ML IV ONE (06:05)
[2022-05-27] MEDS ORDERED: METHYLERGONOVINE MALEATE 0.2 MG TAB PO PRN (06:55)
[2022-05-27] MEDS ORDERED: ACETAMINOPHEN 500 MG TAB PO PRN (06:55)
[2022-05-27] MEDS ORDERED: DIBUCAINE 1% OINTMENT 30GM TOP PRN (06:55)
[2022-05-27] MEDS ORDERED: RHOGAM 300MCG (1500IU) INJ IM SCH (06:55)
[2022-05-27] MEDS ORDERED: DOCUSATE SODIUM 100MG CAPSULE PO PRN (06:55)
[2022-05-27] MEDS: PRENATAL VITAMINS CHEWABLE TABLET PO SCH (08:04)
[2022-05-27] MEDS: IBUPROFEN 600MG TAB PO PRN ×2 (08:06→18:24)
[2022-05-28 06:41] VITALS: BP 104/59
[2022-05-28] MEDS: PRENATAL VITAMINS CHEWABLE TABLET PO SCH (09:31)
[2022-05-28] MEDS: IBUPROFEN 600MG TAB PO PRN (09:31)
[2022-05-28] MEDS ORDERED: IBUP-1022 PO (10:28)
[2022-05-28] MEDS ORDERED: ACET-683 PO (10:28)
[2022-05-29] MEDS ORDERED: MEASLES,MUMPS,RUBELLA VACCINE INJ (MMR-II) SC.IMMUN ONE (09:00)
== END 2022-05-28 13:50 | disposition home or self-care (01) | DRG 560 ==
LOC: M LDI 08:52 → M OBS 05-27 10:10
PROVIDERS: ADMIT Obstetrics & Gynecology; ATTEND Obstetrics & Gynecology
PROC: 3E0P7GC Introduction of Other Therapeutic Substance into Female Reproductive, Via Natural or Artificial Opening (ICD-10-PCS; 2022-05-26)
PROC: 10E0XZZ Delivery of Products of Conception, External Approach (ICD-10-PCS; principal; 2022-05-27)
PROC: 10907ZC Drainage of Amniotic Fluid, Therapeutic from Products of Conception, Via Natural or Artificial Opening (ICD-10-PCS; 2022-05-27)
DX: O26.62 Liver and biliary tract disorders in childbirth (principal); K83.1 Obstruction of bile duct; O24.12 Pre-existing type 2 diabetes mellitus, in childbirth; Z91.040 Latex allergy status; Z3A.37 37 weeks gestation of pregnancy; Z37.0 Single live birth

== ENCOUNTER 2024-06-02 19:31 | Inpatient (IN) | payer OTHER, SELFPAY ==
[~2024-06-02] VITALS: Ht 121.9 cm; Wt 78.1 kg
[~2024-06-02 19:31] MED LIST changes: +ACET-683 PO; +IBUP-1022 PO
[2024-06-02] MEDS: IBUPROFEN 600MG TAB PO ONE (20:03)
[2024-06-02] MEDS: ACETAMINOPHEN 325 MG TAB PO ONE (20:03)
[2024-06-02] MEDS: NS 500 ML IV ONE (20:10)
[2024-06-02 20:14] LABS: HEMATOCRIT 37.1 % (36.0-47.0); HEMOGLOBIN 13.3 g/dl (12.0-15.5); MEAN CORPUSCULAR HEMOGLOBIN 31.7 pg (27.0-33.0); MEAN CORPUSCULAR HGB CONC 35.8 g/dl (32.0-36.5); MEAN CORPUSCULAR VOLUME 88.3 fl (80.0-96.0); PLATELET COUNT, AUTOMATED 170 10^3/uL (150-450); WHITE BLOOD COUNT 12.4 10^3/uL (4.0-10.0)
[2024-06-02 20:38] LABS: ALBUMIN 3.3 G/DL (3.2-5.2); ALKALINE PHOSPHATASE 71 U/L (35-104); ALT/SGPT 47 U/L (7.0-40); AST/SGOT 47 U/L (<34); BILIRUBIN,DIRECT 0.6 MG/DL (<0.4); BILIRUBIN,TOTAL 1.8 MG/DL (0.3-1.2); BLOOD UREA NITROGEN 25 MG/DL (9-23); CALCIUM LEVEL 7.8 MG/DL (8.5-10.1); CARBON DIOXIDE LEVEL 24 MMOL/L (20-31); CHLORIDE LEVEL 97 MMOL/L (98-107); CPK CREATINE PHOSPHOKINASE 925 U/L (34-145); GLOMERULAR FILTRATION RATE > 60.0 (>60); GLUCOSE, FASTING 143 MG/DL (60-100); LIPASE 18 U/L (12-53); MB/CK RELATIVE INDEX 0.21 (< OR =4); POTASSIUM SERUM 4.4 MMOL/L (3.5-5.1); SODIUM LEVEL 135 MMOL/L (136-145)
[2024-06-02 20:42] LABS: ANISOCYTOSIS 1+; ATYPICAL LYMPH 3 % (0-5); LYMPHOCYTES 14 % (16-44); MONOCYTES 3 % (0-5); NEUTROPHILS 75 % (28-66); PLATELET ESTIMATE NORMAL (NORMAL)
[2024-06-02] MEDS ORDERED: ISOVUE-370 76% 100ML VIAL As Ordered ONE (20:45)
[2024-06-02 20:47] LABS: HCG, SERUM QUALITATIVE NEGATIVE (NEGATIVE)
[2024-06-02 20:49] LABS: KETONE, URINE AUTO RFX NEGATIVE (NEGATIVE); LEUKOCYTE ESTERASE UR AUTO RFX NEGATIVE (NEGATIVE); MUCUS, URINE RFX SMALL (NEGATIVE); NITRITE, URINE AUTO RFX NEGATIVE (NEGATIVE); RBC, URINE AUTO RFX 2 /HPF (0-3); SQUAM EPITHELIAL CELL UR AURFX 1 /HPF (0-6); WBC, URINE AUTO RFX 10 /HPF (0-3)
[2024-06-02] MEDS: NS (Normal Saline) 0.9% 1,000 ML IV ONE ×2 (20:50→22:18)
[2024-06-02] MEDS: CEFEPIME HCL 2 GM in DEXTROSE 5% (D5W) ADV/MINI-BAG 50 ML IV ONE (21:15)
[2024-06-02] MEDS: [UNRECOGNIZED DRUG - OTHER] IV ONE (21:46)
[2024-06-02] MEDS: NS 0.9% IV ONE (21:46)
[2024-06-02] MEDS: OSELTAMIVIR PHOSPHATE 75 MG CAP PO ONE (22:18)
[2024-06-03] MEDS ORDERED: ACET-683 PO (00:09)
[2024-06-03] MEDS ORDERED: PANTOPRAZOLE 40MG VIAL IV SCH (00:10)
[2024-06-03] MEDS ORDERED: HOME MED LIST COMPLETE! XX SCH (00:10)
[2024-06-03] MEDS: NS (Normal Saline) 0.9% 1,000 ML IV SCH (00:40)
[2024-06-03] MEDS: PANTOPRAZOLE 40MG VIAL IV SCH (01:00)
[2024-06-03 04:18] LABS: HEMATOCRIT 29.7 % (36.0-47.0); MEAN CORPUSCULAR HEMOGLOBIN 31.8 pg (27.0-33.0); MEAN CORPUSCULAR VOLUME 90.8 fl (80.0-96.0); PLATELET COUNT, AUTOMATED 127 10^3/uL (150-450); RED BLOOD COUNT 3.27 10^6/uL (4.00-5.40); WHITE BLOOD COUNT 10.7 10^3/uL (4.0-10.0)
[2024-06-03 04:22] LABS: HEMOGLOBIN 10.4 g/dl (12.0-15.5)
[2024-06-03 04:53] LABS: ALBUMIN 2.1 G/DL (3.2-5.2); ALKALINE PHOSPHATASE 49 U/L (35-104); ALT/SGPT 32 U/L (7.0-40); AST/SGOT 29 U/L (<34); BILIRUBIN,TOTAL 1.4 MG/DL (0.3-1.2); BLOOD UREA NITROGEN 15 MG/DL (9-23); CALCIUM LEVEL 6.8 MG/DL (8.5-10.1); CARBON DIOXIDE LEVEL 23 MMOL/L (20-31); CHLORIDE LEVEL 108 MMOL/L (98-107); CREATININE FOR GFR 0.64 MG/DL (0.55-1.30); GLOMERULAR FILTRATION RATE > 60.0 (>60); GLUCOSE, FASTING 117 MG/DL (60-100); POTASSIUM SERUM 3.6 MMOL/L (3.5-5.1); SODIUM LEVEL 142 MMOL/L (136-145)
[2024-06-03] MEDS: CEFEPIME HCL 2 GM in DEXTROSE 5% (D5W) ADV/MINI-BAG 50 ML IV SCH (04:56)
[2024-06-03] MEDS: guaiFENesin ER TABLET 600 MG TAB PO SCH (08:49)
[2024-06-03] MEDS: OSELTAMIVIR PHOSPHATE 75 MG CAP PO SCH (08:49)
[2024-06-03] MEDS: ENOXAPARIN 40MG/0.4ML SYRINGE (J1650 PER 10MG) SC SCH (08:50)
[2024-06-03] MEDS: DOXYCYCLINE HYCLATE 100 MG in DEXTROSE 5% (D5W) MINI-BAG PLU 100 ML IV SCH (08:51)
[2024-06-03] MEDS: CALCIUM CARBONATE 500 MG CHEW U/D PO ONE (10:40)
[2024-06-03] MEDS: ACETAMINOPHEN 325 MG TAB PO PRN (11:39)
[2024-06-03] MEDS: BENZONATATE 100MG CAPSULE PO PRN (12:17)
[2024-06-03 14:40] LABS: C REACTIVE PROTEIN QUANTITATIV 30.92 MG/DL (<1.0)
[2024-06-03 15:25] VITALS: BP 122/77; TEMP 98.3; O2SAT 98
[2024-06-03] MEDS: cefTRIAXone SOD 2 GM in DEXTROSE 5% (D5W) ADV/MINI-BAG 50 ML IV SCH (20:28)
[2024-06-03 20:33] VITALS: BP 121/70; TEMP 99.2; O2SAT 97
[2024-06-04] MEDS: IBUPROFEN 400MG TAB PO ONE (01:59)
[2024-06-04 05:07] VITALS: BP 118/56; TEMP 97.3; O2SAT 98
[2024-06-04 07:16] LABS: HEMATOCRIT 29.6 % (36.0-47.0); MEAN CORPUSCULAR HGB CONC 33.8 g/dl (32.0-36.5); MEAN CORPUSCULAR VOLUME 91.6 fl (80.0-96.0); PLATELET COUNT, AUTOMATED 133 10^3/uL (150-450); RED BLOOD COUNT 3.23 10^6/uL (4.00-5.40); WHITE BLOOD COUNT 10.2 10^3/uL (4.0-10.0)
[2024-06-04 07:36] LABS: BLOOD UREA NITROGEN 8 MG/DL (9-23); CALCIUM LEVEL 6.3 MG/DL (8.5-10.1); CARBON DIOXIDE LEVEL 22 MMOL/L (20-31); CHLORIDE LEVEL 109 MMOL/L (98-107); CREATININE FOR GFR 0.43 MG/DL (0.55-1.30); GLOMERULAR FILTRATION RATE > 60.0 (>60); GLUCOSE, FASTING 78 MG/DL (60-100); MAGNESIUM LEVEL 1.6 MG/DL (1.8-2.4); SODIUM LEVEL 143 MMOL/L (136-145)
[2024-06-04 07:50] LABS: ATYPICAL LYMPH 2 % (0-5); LYMPHOCYTES 10 % (16-44); METAMYELOCYTES 1 % (0-0); MONOCYTES 1 % (0-5); NEUTROPHILS 70 % (28-66); PLASMA CELL 1 % (0-0)
[2024-06-04 07:51] LABS: PLATELET ESTIMATE DECREASED (NORMAL)
[2024-06-04 07:56] LABS: C REACTIVE PROTEIN QUANTITATIV 27.29 MG/DL (<1.0); DOHLE BODIES 1+
[2024-06-04] MEDS: MAG SULF 1GM/100ML (MAG RUN) 1 GM in IV 1 EA IV SCH (11:07)
[2024-06-04] MEDS: POTASSIUM CHLORIDE 10MEQ SR TABLET PO SCH (11:07)
[2024-06-04 12:14] VITALS: BP 109/68; TEMP 98.7; O2SAT 94
[2024-06-04] MEDS: guaiFENesin/CODEINE SYRUP 5 ML UDC PO PRN (14:17)
[2024-06-04 19:34] VITALS: BP 124/67; TEMP 100.4; TEMP 98.7; O2SAT 94
[2024-06-04] MEDS: RAMELTEON 8 MG TAB (ROZEREM) PO PRN (20:49)
[2024-06-05] VITALS (8 sets, daily range): BP systolic 108–116; BP diastolic 59–70; TEMP 97.8–100; O2SAT 86–96
[2024-06-05 06:42] LABS: BASO % 0.1 % (0.0-1.0); EOS # 0.2 10^3/uL (0.0-0.5); EOS % 2.3 % (0.0-3.0); HEMATOCRIT 29.9 % (36.0-47.0); HEMOGLOBIN 10.3 g/dl (12.0-15.5); LYMPH # 1.6 10^3/uL (1.5-5.0); LYMPH % 16.8 % (24.0-44.0); MEAN CORPUSCULAR HEMOGLOBIN 31.3 pg (27.0-33.0); MEAN CORPUSCULAR HGB CONC 34.4 g/dl (32.0-36.5); MEAN CORPUSCULAR VOLUME 90.9 fl (80.0-96.0); MONO # 0.3 10^3/uL (0.0-0.8); MONO % 3.1 % (2.0-8.0); NEUTROPHILS # 7.1 10^3/uL (1.5-8.5); NEUTROPHILS % 73.4 % (36.0-66.0); PLATELET COUNT, AUTOMATED 162 10^3/uL (150-450); RED BLOOD COUNT 3.29 10^6/uL (4.00-5.40); WHITE BLOOD COUNT 9.7 10^3/uL (4.0-10.0)
[2024-06-05 07:11] LABS: BLOOD UREA NITROGEN 6 MG/DL (9-23); CARBON DIOXIDE LEVEL 23 MMOL/L (20-31); CHLORIDE LEVEL 105 MMOL/L (98-107); CREATININE FOR GFR 0.46 MG/DL (0.55-1.30); GLOMERULAR FILTRATION RATE > 60.0 (>60); GLUCOSE, FASTING 97 MG/DL (60-100); MAGNESIUM LEVEL 1.9 MG/DL (1.8-2.4); POTASSIUM SERUM 3.3 MMOL/L (3.5-5.1); SODIUM LEVEL 138 MMOL/L (136-145)
[2024-06-05 07:23] LABS: C REACTIVE PROTEIN QUANTITATIV 19.69 MG/DL (<1.0)
[2024-06-05] MEDS: POTASSIUM CHLORIDE 10MEQ SR TABLET PO ONE (11:45)
[2024-06-05] MEDS: SODIUM CHLORIDE NASAL 0.65% SPRAY BTL (OCEAN) SCH (13:51)
[2024-06-06] VITALS (12 sets, daily range): BP systolic 98–119; BP diastolic 51–61; TEMP 97.6–99.1; O2SAT 91–97
[2024-06-06 06:22] LABS: BASO % 0.2 % (0.0-1.0); EOS # 0.1 10^3/uL (0.0-0.5); EOS % 1.2 % (0.0-3.0); HEMATOCRIT 29.1 % (36.0-47.0); HEMOGLOBIN 10.3 g/dl (12.0-15.5); LYMPH # 1.9 10^3/uL (1.5-5.0); LYMPH % 16.5 % (24.0-44.0); MEAN CORPUSCULAR HEMOGLOBIN 31.7 pg (27.0-33.0); MEAN CORPUSCULAR HGB CONC 35.4 g/dl (32.0-36.5); MEAN CORPUSCULAR VOLUME 89.5 fl (80.0-96.0); MONO # 0.4 10^3/uL (0.0-0.8); MONO % 3.7 % (2.0-8.0); NEUTROPHILS # 8.2 10^3/uL (1.5-8.5); NEUTROPHILS % 72.6 % (36.0-66.0); PLATELET COUNT, AUTOMATED 183 10^3/uL (150-450); RED BLOOD COUNT 3.25 10^6/uL (4.00-5.40); WHITE BLOOD COUNT 11.3 10^3/uL (4.0-10.0)
[2024-06-06 06:33] LABS: BLOOD UREA NITROGEN 7 MG/DL (9-23); CALCIUM LEVEL 7.6 MG/DL (8.5-10.1); CARBON DIOXIDE LEVEL 25 MMOL/L (20-31); CHLORIDE LEVEL 104 MMOL/L (98-107); CREATININE FOR GFR 0.47 MG/DL (0.55-1.30); GLOMERULAR FILTRATION RATE > 60.0 (>60); GLUCOSE, FASTING 107 MG/DL (60-100); MAGNESIUM LEVEL 1.8 MG/DL (1.8-2.4); POTASSIUM SERUM 3.5 MMOL/L (3.5-5.1); SODIUM LEVEL 138 MMOL/L (136-145)
[2024-06-06 06:43] LABS: C REACTIVE PROTEIN QUANTITATIV 20.75 MG/DL (<1.0)
[2024-06-06] MEDS ORDERED: ONDANSETRON 4MG 2ML VIAL IV PRN (10:10)
[2024-06-06] MEDS ORDERED: PERCOCET 5MG/325MG TAB PO PRN (10:10)
[2024-06-06] MEDS ORDERED: BISACODYL 10MG SUPP PR PRN (10:10)
[2024-06-06] MEDS ORDERED: LEVALBUTEROL 1.25MG 0.5ML CONCENTRATE NEB NEB PRN (10:10)
[2024-06-06 10:35] LABS: LDH LACTATE DEHYDROGENASE 302 U/L (120-246)
[2024-06-06] MEDS: KETOROLAC 30 MG/ML 1ML VIAL IV SCH (11:00)
[2024-06-06 12:01] LABS: BLOOD UREA NITROGEN 8 MG/DL (9-23); CALCIUM LEVEL 7.9 MG/DL (8.5-10.1); CARBON DIOXIDE LEVEL 25 MMOL/L (20-31); CHLORIDE LEVEL 104 MMOL/L (98-107); CREATININE FOR GFR 0.43 MG/DL (0.55-1.30); GLOMERULAR FILTRATION RATE > 60.0 (>60); GLUCOSE, FASTING 122 MG/DL (60-100); POTASSIUM SERUM 3.6 MMOL/L (3.5-5.1); SODIUM LEVEL 138 MMOL/L (136-145)
[2024-06-06] MEDS: LEVALBUTEROL 1.25MG 0.5ML CONCENTRATE NEB NEB SCH (13:29)
[2024-06-06 15:07] LABS: PH BODY FLUID 7.183 UNITS (NOT ESTABLISHED); SOURCE, BODY FLUID pH PLEURAL
[2024-06-06 15:34] LABS: APPEARANCE, BODY FLUID CLOUDY (CLEAR); PLEURAL FL COLOR YELLOW (COLORLESS); SOURCE, BODY FLUID PLEURAL
[2024-06-06 15:35] LABS: SOURCE, BODY FLUID ALBUMIN PLEURAL
[2024-06-06 15:40] LABS: SOURCE, BODY FLUID GLUCOSE PLEURAL; SOURCE, BODY FLUID TRIG PLEURAL; TRIGLYCERIDE, BODY FLUID 80 MG/DL (NOT ESTABLISHED)
[2024-06-06 15:42] LABS: AMYLASE, BODY FLUID < 20 U/L (NOT ESTABLISHED); CHOLESTEROL, BODY FLUID 64 MG/DL (NOT ESTABLISHED); SOURCE, BODY FLUID AMYLASE PLEURAL; SOURCE, BODY FLUID CHOL PLEURAL
[2024-06-06 15:52] LABS: LDH, BODY FLUID > 750 U/L (NOT ESTABLISHED); SOURCE, BODY FLUID LDH PLEURAL
[2024-06-06 15:56] LABS: SOURCE, BODY FLUID TOT PROTEIN PLEURAL; TOTAL PROTEIN, BODY FLUID 4.1 G/DL (NOT ESTABLISHED)
[2024-06-06] MEDS ORDERED: ALTEPLASE 2MG/2ML VIAL XX ONE (17:10)
[2024-06-06] MEDS: NS ALTEPLASE RECOMBINANT INTRAPLEU ONE ×2 (18:04)
[2024-06-06] MEDS: DOCUSATE SODIUM 100MG CAPSULE PO SCH (21:32)
[2024-06-06] MEDS: PERCOCET 5MG/325MG TAB PO PRN (21:32)
[2024-06-07] VITALS (34 sets, daily range): BP systolic 95–106; BP diastolic 53–63; TEMP 96.3–98.8; O2SAT 89–98
[2024-06-07 07:18] LABS: BASO % 0.2 % (0.0-1.0); EOS # 0.1 10^3/uL (0.0-0.5); EOS % 1.4 % (0.0-3.0); HEMATOCRIT 30.5 % (36.0-47.0); HEMOGLOBIN 10.4 g/dl (12.0-15.5); LYMPH # 1.6 10^3/uL (1.5-5.0); LYMPH % 15.7 % (24.0-44.0); MEAN CORPUSCULAR HEMOGLOBIN 31.3 pg (27.0-33.0); MEAN CORPUSCULAR HGB CONC 34.1 g/dl (32.0-36.5); MEAN CORPUSCULAR VOLUME 91.9 fl (80.0-96.0); MONO # 0.4 10^3/uL (0.0-0.8); MONO % 3.9 % (2.0-8.0); NEUTROPHILS # 7.3 10^3/uL (1.5-8.5); NEUTROPHILS % 72.5 % (36.0-66.0); PLATELET COUNT, AUTOMATED 188 10^3/uL (150-450); RED BLOOD COUNT 3.32 10^6/uL (4.00-5.40); WHITE BLOOD COUNT 10.1 10^3/uL (4.0-10.0)
[2024-06-07 08:03] LABS: BLOOD UREA NITROGEN 13 MG/DL (9-23); C REACTIVE PROTEIN QUANTITATIV 19.81 MG/DL (<1.0); CALCIUM LEVEL 7.4 MG/DL (8.5-10.1); CARBON DIOXIDE LEVEL 27 MMOL/L (20-31); CHLORIDE LEVEL 101 MMOL/L (98-107); CREATININE FOR GFR 0.45 MG/DL (0.55-1.30); GLOMERULAR FILTRATION RATE > 60.0 (>60); GLUCOSE, FASTING 102 MG/DL (60-100); POTASSIUM SERUM 3.5 MMOL/L (3.5-5.1); SODIUM LEVEL 138 MMOL/L (136-145)
[2024-06-07] MEDS: MOM 30ML SUSPENSION UDC PO SCH (08:18)
[2024-06-07] MEDS: PANTOPRAZOLE 40MG TAB (PROTONIX) PO SCH (12:10)
[2024-06-08] VITALS (26 sets, daily range): BP systolic 103–119; BP diastolic 6–71; TEMP 97.5–99.8; O2SAT 89–100
[2024-06-08 05:54] LABS: HEMATOCRIT 28.9 % (36.0-47.0); HEMOGLOBIN 9.8 g/dl (12.0-15.5); MEAN CORPUSCULAR HEMOGLOBIN 31.3 pg (27.0-33.0); MEAN CORPUSCULAR HGB CONC 33.9 g/dl (32.0-36.5); MEAN CORPUSCULAR VOLUME 92.3 fl (80.0-96.0); PLATELET COUNT, AUTOMATED 208 10^3/uL (150-450); RED BLOOD COUNT 3.13 10^6/uL (4.00-5.40); WHITE BLOOD COUNT 9.4 10^3/uL (4.0-10.0)
[2024-06-08 06:08] LABS: BLOOD UREA NITROGEN 9 MG/DL (9-23); CALCIUM LEVEL 7.4 MG/DL (8.5-10.1); CARBON DIOXIDE LEVEL 27 MMOL/L (20-31); CHLORIDE LEVEL 104 MMOL/L (98-107); CREATININE FOR GFR 0.42 MG/DL (0.55-1.30); GLOMERULAR FILTRATION RATE > 60.0 (>60); GLUCOSE, FASTING 89 MG/DL (60-100); MAGNESIUM LEVEL 2.1 MG/DL (1.8-2.4); POTASSIUM SERUM 3.9 MMOL/L (3.5-5.1); SODIUM LEVEL 139 MMOL/L (136-145)
[2024-06-08 06:22] LABS: C REACTIVE PROTEIN QUANTITATIV 19.67 MG/DL (<1.0)
[2024-06-08 07:01] LABS: LYMPHOCYTES 22 % (16-44); METAMYELOCYTES 3 % (0-0); MONOCYTES 2 % (0-5); NEUTROPHILS 73 % (28-66); PLATELET ESTIMATE NORMAL (NORMAL)
[2024-06-08] MEDS: KETOROLAC 30 MG/ML 1ML VIAL IV SCH (13:41)
[2024-06-09] VITALS (20 sets, daily range): BP systolic 109–116; BP diastolic 57–62; TEMP 95.5–99.3; O2SAT 91–98
[2024-06-09 05:36] LABS: BASO % 0.1 % (0.0-1.0); EOS # 0.1 10^3/uL (0.0-0.5); EOS % 1.3 % (0.0-3.0); HEMATOCRIT 29.4 % (36.0-47.0); HEMOGLOBIN 9.8 g/dl (12.0-15.5); LYMPH # 1.7 10^3/uL (1.5-5.0); LYMPH % 17.6 % (24.0-44.0); MEAN CORPUSCULAR HEMOGLOBIN 31.4 pg (27.0-33.0); MEAN CORPUSCULAR HGB CONC 33.3 g/dl (32.0-36.5); MEAN CORPUSCULAR VOLUME 94.2 fl (80.0-96.0); MONO # 0.2 10^3/uL (0.0-0.8); MONO % 2.5 % (2.0-8.0); NEUTROPHILS # 7.1 10^3/uL (1.5-8.5); NEUTROPHILS % 74.6 % (36.0-66.0); PLATELET COUNT, AUTOMATED 243 10^3/uL (150-450); RED BLOOD COUNT 3.12 10^6/uL (4.00-5.40); WHITE BLOOD COUNT 9.5 10^3/uL (4.0-10.0)
[2024-06-09 05:55] LABS: BLOOD UREA NITROGEN 7 MG/DL (9-23); CALCIUM LEVEL 7.5 MG/DL (8.5-10.1); CARBON DIOXIDE LEVEL 26 MMOL/L (20-31); CHLORIDE LEVEL 104 MMOL/L (98-107); CREATININE FOR GFR 0.44 MG/DL (0.55-1.30); GLOMERULAR FILTRATION RATE > 60.0 (>60); GLUCOSE, FASTING 92 MG/DL (60-100); MAGNESIUM LEVEL 2.2 MG/DL (1.8-2.4); POTASSIUM SERUM 4.5 MMOL/L (3.5-5.1); SODIUM LEVEL 137 MMOL/L (136-145)
[2024-06-09 06:29] LABS: C REACTIVE PROTEIN QUANTITATIV 13.44 MG/DL (<1.0)
[2024-06-09] MEDS ORDERED: OXYC-517 PO (16:11)
[2024-06-09] MEDS ORDERED: MUCI600T31 PO (16:11)
[2024-06-09] MEDS ORDERED: PROB250C PO (16:11)
[2024-06-09] MEDS ORDERED: CEFD300CAP PO (16:11)
== END 2024-06-09 18:53 | disposition home or self-care (01) | DRG 720 ==
LOC: M ED 19:31 → M ED INP 23:50 → M MS4PR 06-03 15:20 → M PCU 06-06 13:55
PROVIDERS: ADMIT Student in an Organized Health Care Education/Training Program; ATTEND Internal Medicine
PROC: B246ZZZ Ultrasonography of Right and Left Heart (ICD-10-PCS; principal; 2024-06-05)
PROC: 0W9930Z Drainage of Right Pleural Cavity with Drainage Device, Percutaneous Approach (ICD-10-PCS; 2024-06-06)
PROC: 3E0L3GC Introduction of Other Therapeutic Substance into Pleural Cavity, Percutaneous Approach (ICD-10-PCS; 2024-06-06)
DX: A40.0 Sepsis due to streptococcus, group A (principal); D69.6 Thrombocytopenia, unspecified; J12.89 Other viral pneumonia; E83.51 Hypocalcemia; E66.01 Morbid (severe) obesity due to excess calories; J02.0 Streptococcal pharyngitis; J10.01 Influenza due to other identified influenza virus with the same other identified influenza virus pneumonia; E86.0 Dehydration; R74.01 Elevation of levels of liver transaminase levels; B97.29 Other coronavirus as the cause of diseases classified elsewhere; D64.9 Anemia, unspecified; E87.6 Hypokalemia; Z91.040 Latex allergy status

== ENCOUNTER → 2024-06-16 | Outpatient (CLI) | payer SELFPAY ==
[~2024-06-16] MED LIST changes: +CEFD300CAP PO; +MUCI600T31 PO; +OXYC-517 PO; +PROB250C PO
[2024-06-16 17:49] LABS: BASO # 0.1 10^3/uL (0.0-0.2); BASO % 0.5 % (0.0-1.0); EOS % 0.4 % (0.0-3.0); HEMATOCRIT 33.9 % (36.0-47.0); HEMOGLOBIN 11.6 g/dl (12.0-15.5); LYMPH # 2.3 10^3/uL (1.5-5.0); MEAN CORPUSCULAR HEMOGLOBIN 31.3 pg (27.0-33.0); MEAN CORPUSCULAR HGB CONC 34.2 g/dl (32.0-36.5); MEAN CORPUSCULAR VOLUME 91.4 fl (80.0-96.0); MONO # 0.3 10^3/uL (0.0-0.8); MONO % 3.3 % (2.0-8.0); NEUTROPHILS # 7.6 10^3/uL (1.5-8.5); NEUTROPHILS % 73.4 % (36.0-66.0); PLATELET COUNT, AUTOMATED 472 10^3/uL (150-450); RED BLOOD COUNT 3.71 10^6/uL (4.00-5.40); WHITE BLOOD COUNT 10.4 10^3/uL (4.0-10.0)
[2024-06-16 18:13] LABS: ALBUMIN 3.3 G/DL (3.2-5.2); ALKALINE PHOSPHATASE 120 U/L (35-104); ALT/SGPT 53 U/L (7.0-40); AST/SGOT 21 U/L (<34); BILIRUBIN,DIRECT 0.2 MG/DL (<0.4); BILIRUBIN,TOTAL 0.5 MG/DL (0.3-1.2); CHOLESTEROL LEVEL 188 MG/DL (<200); CHOLESTEROL RISK RATIO 4.75 (<5); HDL CHOLESTEROL 39.5 MG/DL (>40); IRON (FE) 92 UG/DL (50-170); LDL CHOLESTEROL 74.7 MG/DL (<100); NON-HDL-C 148.5 MG/DL; PERCENT SATURATION 23.4 % (13.2-45.0); TOTAL IRON BINDING CAPACITY 394 UG/DL (250-425); TOTAL PROTEIN 7.7 G/DL (5.7-8.2); TRIGLYCERIDES LEVEL 369 MG/DL (<150)
[2024-06-16 18:17] LABS: FERRITIN 260.6 NG/ML (7.3-270.7)
[2024-06-16 18:18] LABS: VITAMIN B12 LEVEL 1056 PG/ML (211-911)
[2024-06-16 18:22] LABS: HEMOGLOBIN A1c 5.2 % (4.0-6.0)
[2024-06-19 15:58] LABS: MUMPS VIRUS IgG ANTIBODY < 9.00 AU/mL (>10.99); RUBEOLA IgG ANTIBODY < 13.50 AU/mL (>16.49)
== END ==
LOC: M LAB 15:31 → M RAD 15:31
PROVIDERS: ATTEND Nurse Practitioner Family
DX: Z87.01 Personal history of pneumonia (recurrent) (principal); D64.9 Anemia, unspecified; E66.3 Overweight; R94.5 Abnormal results of liver function studies; Z11.9 Encounter for screening for infectious and parasitic diseases, unspecified; J10.00 Influenza due to other identified influenza virus with unspecified type of pneumonia

== ENCOUNTER → 2024-07-21 | Outpatient (REF) | payer MEDICAID, SELFPAY ==
[2024-07-21 14:56] LABS: BASO % 0.4 % (0.0-1.0); EOS # 0.1 10^3/uL (0.0-0.5); EOS % 2.3 % (0.0-3.0); HEMATOCRIT 38.9 % (36.0-47.0); HEMOGLOBIN 13.4 g/dl (12.0-15.5); LYMPH # 2.8 10^3/uL (1.5-5.0); LYMPH % 49.9 % (24.0-44.0); MEAN CORPUSCULAR HEMOGLOBIN 31.6 pg (27.0-33.0); MEAN CORPUSCULAR HGB CONC 34.4 g/dl (32.0-36.5); MEAN CORPUSCULAR VOLUME 91.7 fl (80.0-96.0); MONO # 0.3 10^3/uL (0.0-0.8); MONO % 5.3 % (2.0-8.0); NEUTROPHILS # 2.4 10^3/uL (1.5-8.5); NEUTROPHILS % 41.9 % (36.0-66.0); PLATELET COUNT, AUTOMATED 357 10^3/uL (150-450); RED BLOOD COUNT 4.24 10^6/uL (4.00-5.40); WHITE BLOOD COUNT 5.7 10^3/uL (4.0-10.0)
[2024-07-21 15:11] LABS: ERYTHROCYTE SEDIMENTATION RATE 7 mm/hr (0-20)
== END ==
LOC: M LAB REF 13:23
PROVIDERS: ATTEND Nurse Practitioner Family
DX: J10.00 Influenza due to other identified influenza virus with unspecified type of pneumonia (principal); Z87.01 Personal history of pneumonia (recurrent)

== ENCOUNTER → 2025-01-30 | Outpatient (CLI) | payer OTHER ==
[~2025-01-30] MED LIST changes: -IBUP-1022 PO; +IBUP600T42 PO
[2025-01-30 14:00] LABS: PLATELET COUNT, AUTOMATED 274 10^3/uL (150-450)
[2025-01-30 14:23] LABS: ESTIMATED AVERAGE GLUCOSE 100.0 MG/DL (60-110)
[2025-01-30 14:26] LABS: GLUCOSE CHALLENGE TEST 1 HOUR 168 MG/DL (LESS THAN 140)
[2025-01-30 15:00] LABS: HEPATITIS C VIRUS ABY INDEX < 0.02 INDEX (<0.8); HIV 1&2 SCREEN NEGATIVE (NEGATIVE); Trichomonas vaginalis (AMP) NOT DETECTED (NEGATIVE)
[2025-01-30 15:23] LABS: GC DNA AMPLIFICATION NEGATIVE (NEGATIVE)
== END ==
LOC: M PLALAB 10:45
PROVIDERS: ATTEND Obstetrics & Gynecology
DX: Z34.92 Encounter for supervision of normal pregnancy, unspecified, second trimester (principal)

== ENCOUNTER → 2025-02-09 | Outpatient (CLI) | payer OTHER | LOC: M LAB 08:02 | PROVIDERS: ATTEND Obstetrics & Gynecology | DX: R73.09 Other abnormal glucose (principal) ==

== ENCOUNTER 2025-02-23 19:41 | Emergency (ER) | payer OTHER ==
[~2025-02-23] VITALS: Ht 132.1 cm; Wt 76.7 kg
[2025-02-23] MEDS ORDERED: PRED20TA PO (22:00)
[2025-02-23] MEDS: dexAMETHasone 10 MG/1 ML VIAL PRES.FREE IM ONE (22:29)
[2025-02-23 22:35] VITALS: BP 132/84; TEMP 98.5; O2SAT 97
== END 2025-02-23 22:37 | disposition home or self-care (01) ==
LOC: M ED 19:41
DX: K12.2 Cellulitis and abscess of mouth (principal); Z91.040 Latex allergy status; Z79.1 Long term (current) use of non-steroidal anti-inflammatories (NSAID); Z79.2 Long term (current) use of antibiotics; Z79.899 Other long term (current) drug therapy; Z79.52 Long term (current) use of systemic steroids
CPT/HCPCS: 87880; 96372; 99284; J1100

== ENCOUNTER → 2025-02-27 | Outpatient (CLI) | payer OTHER ==
[~2025-02-27] MED LIST changes: +PRED20TA PO
== END ==
LOC: M WHC 11:55
PROVIDERS: ATTEND Obstetrics & Gynecology
DX: Z34.92 Encounter for supervision of normal pregnancy, unspecified, second trimester (principal)

== ENCOUNTER 2025-03-04 13:58 | Inpatient (IN) | payer OTHER ==
[~2025-03-04] VITALS: Ht 132.1 cm; Wt 76.2 kg
[2025-03-04 17:05] LABS: BASO # 0.0 10^3/uL (0.0-0.2); BASO % 0.2 % (0.0-1.0); EOS # 0.1 10^3/uL (0.0-0.5); EOS % 0.8 % (0.0-3.0); LYMPH # 2.1 10^3/uL (1.5-5.0); LYMPH % 24.4 % (24.0-44.0); MONO # 0.3 10^3/uL (0.0-0.8); MONO % 3.2 % (2.0-8.0); NEUTROPHILS # 6.2 10^3/uL (1.5-8.5); NEUTROPHILS % 71.2 % (36.0-66.0); PLATELET COUNT, AUTOMATED 247 10^3/uL (150-450)
[2025-03-04] MEDS: NS (Normal Saline) 0.9% 1,000 ML IV ONE (17:14)
[2025-03-04] MEDS: IPRATROPIUM 0.5 MG/ALBUTEROL 2.5 MG INH SOL UD 3 ML NEB ONE (17:15)
[2025-03-04] MEDS: CHLORASEPTIC SPRAY MT PRN (17:16)
[2025-03-04 17:30] LABS: ALT/SGPT 23 U/L (7.0-40); AST/SGOT 18 U/L (<34); CALCIUM LEVEL 9.1 MG/DL (8.5-10.1); CARBON DIOXIDE LEVEL 23 MMOL/L (20-31); CHLORIDE LEVEL 106 MMOL/L (98-107); CREATININE FOR GFR 0.43 MG/DL (0.55-1.30); GLOMERULAR FILTRATION RATE > 90.0 (>60); POTASSIUM SERUM 4.0 MMOL/L (3.5-5.1); SODIUM LEVEL 141 MMOL/L (136-145)
[2025-03-04 18:40] LABS: MONO REFLEX EBV COMP NEGATIVE (NEGATIVE)
[2025-03-04] MEDS ORDERED: ISOVUE-370 76% 100 ML VIAL As Ordered ONE (23:42)
[2025-03-05] MEDS: LR 1,000 ML IV SCH (01:18)
[2025-03-05] MEDS ORDERED: ACETAMINOPHEN 325 MG TAB PO PRN (03:05)
[2025-03-05] MEDS: PIPERACILLIN/TAZOBACTAM SOD 3.375 GM in DEXTROSE 5% (D5W) ADV/MINI-BAG 50 ML IV SCH (03:40)
[2025-03-05 05:05] VITALS: TEMP 97.4
[2025-03-05 05:50] VITALS: BP 121/74; O2SAT 99
[2025-03-05] MEDS: dexAMETHasone 4 MG/ML 1 ML VIAL IV SCH (10:11)
[2025-03-05 14:00] VITALS: BP 115/59; O2SAT 98
[2025-03-05 22:00] VITALS: BP 101/52; O2SAT 97
[2025-03-06 06:00] VITALS: BP 100/54; O2SAT 98
[2025-03-06 13:18] LABS: EBV AB TO NUCLEAR ANTIGEN 48.70 U/mL (<18.00); EBV VIRAL CAPSID AG IGG > 750.00 U/mL (<18.00); EBV VIRAL CAPSID AG IGM < 36.00 U/mL (<36.00)
[2025-03-06 18:30] VITALS: BP 104/66; O2SAT 99
[2025-03-07 06:00] VITALS: BP 95/56; O2SAT 98
[2025-03-07] MEDS: FLUZONE VACCINE TRI PF(25-26) 0.5ML SYRINGE IM.IMMUN ONE (15:10)
== END 2025-03-07 16:30 | disposition home or self-care (01) | DRG 566 ==
LOC: M ED 13:58 → M OBS 03-05 06:04
PROVIDERS: ADMIT Specialist; ATTEND Obstetrics & Gynecology
PROC: 0CJS8ZZ Inspection of Larynx, Via Natural or Artificial Opening Endoscopic (ICD-10-PCS; principal; 2025-03-05)
PROC: 0CJS8ZZ Inspection of Larynx, Via Natural or Artificial Opening Endoscopic (ICD-10-PCS; 2025-03-06)
DX: O99.512 Diseases of the respiratory system complicating pregnancy, second trimester (principal); J38.7 Other diseases of larynx; Z3A.21 21 weeks gestation of pregnancy; Z79.52 Long term (current) use of systemic steroids; Z79.899 Other long term (current) drug therapy; Z91.040 Latex allergy status; O24.112 Pre-existing type 2 diabetes mellitus, in pregnancy, second trimester